=== PATIENT | female | born 2000 | race Caucasian/White ===

== ENCOUNTER 2021-12-07 08:16 | Outpatient (CLI) | payer OTHER, SELFPAY ==
[2021-12-07 08:53] LABS: Basophils Percent Auto 0.3 % (0.2-1.2); Eosinophils Absolute Auto 0.1 K/mm3 (0-0.3); Eosinophils Percent Auto 1.8 % (0-4.4); Hematocrit 41.9 % (37.0-47.0); Hemoglobin 13.5 g/dL (12.0-15.0); Immature Granulocyte Absolute 0.01 K/mm3 (0.00-0.031); Immature Granulocyte Percent A 0.1 % (0-0.5); Lymphocytes Absolute Auto 2.93 K/mm3 (0.9-3.2); Lymphocytes Percent Auto 43.1 % (18.3-44.2); Mean Corpuscular HGB Conc 32.2 g/dl (32-36); Mean Corpuscular Hemoglobin 29.5 pg (26-34); Mean Corpuscular Volume 91.7 fl (80-100); Mean Platelet Volume 9.8 fl (7.4-10.4); Monocytes Absolute Auto 0.5 K/mm3 (0.1-0.6); Monocytes Percent Auto 7.6 % (2.6-8.5); Neutrophils Absolute Auto 3.2 K/mm3 (1.3-6.7); Neutrophils Percent Auto 47.1 % (45.5-73.1); Platelet Count Result 255 k/mm3 (150-375); Red Blood Count 4.57 M/mm3 (4.2-5.4); Red Cell Distribution Width 12.8 % (11.5-14.5); White Blood Count 6.8 K/mm3 (4.5-10.0)
[2021-12-07 08:54] LABS: Cholesterol 212 mg/dL (0-200); HDL Direct 39 mg/dL; Triglycerides 111 mg/dL (<150)
[2021-12-07 09:04] LABS: LDL Cholesterol Direct 122 mg/dL
[2021-12-07 09:12] LABS: Hemoglobin A1C 5.1 % (<5.7)
[2021-12-10 11:06] LABS: DHEA-Sulfate 233 mcg/dL (18-391)
[2021-12-10 18:22] LABS: Testosterone Free 2.3 pg/mL (0.1-6.4); Testosterone Total 23 ng/dL (2-45)
[2021-12-12 00:26] LABS: Estradiol, Ultrasensitive 81 pg/mL
[2021-12-12 04:43] LABS: FSH 3.5 mIU/mL (***); Prolactin 34.1 ng/mL (***)
== END 2021-12-07 08:17 | disposition home or self-care (01) ==
PROVIDERS: Visit Provider Obstetrics & Gynecology
DX: Z87.42 Personal history of other diseases of the female genital tract (principal)
CPT/HCPCS: 36415; 80061; 82627; 82670; 83001; 83036; 83498; 84144; 84146; 84402; 84403; 85025

== ENCOUNTER 2023-01-02 10:39 | Emergency (ER) | payer OTHER, SELFPAY ==
[2023-01-02 10:48] VITALS: BP 122/74; PULSE 90; RESP 16; TEMP 36.3; O2SAT 100
--- NOTE | 2023-01-02 11:04 | ED.FEMALEGU ---
HPI - Female Genitourinary General Chief complaint: SPECIAL EDUCATION PARAEDUCATOR Stated complaint: Vaginal bleeding Time Seen by Provider: 01/02/23 10:45 Source: patient Mode of arrival: ambulatory Limitations: no limitations History of Present Illness HPI Narrative: This is a 22-year-old female that presents to the emergency department for vaginal bleeding. Reports she has had pelvic cramping over the last couple of days. Reports she has also had heavy vaginal bleeding. She recently had a cycle couple of weeks ago. Sometimes her cycles are abnormal. This 1 was heavier than usual though. She has had some lightheadedness. Reports an episode of vomiting. Denies fevers, dysuria, or hematuria. Related Data Home Medications Medication Instructions Recorded Confirmed No Home Medications 11/26/21 12/09/22 Allergies Allergy/AdvReac Type Severity Reaction Status Date / Time amoxicillin Allergy Severe Rash Verified 12/09/22 13:31 codeine Allergy Severe Rash Verified 12/09/22 13:31 Review of Systems Review of Systems: CONSTITUTIONAL: Denies fever GASTROINTESTINAL: Reports pelvic pain, nausea, vomiting GENITOURINARY: Denies dysuria or hematuria. All systems reviewed & are unremarkable except as noted in HPI and below PMFSH Past Medical History Medical History (Updated 01/02/23 @ 12:28 by Geraldine Howard PA-C) History of PCOS Surgical History Surgical History H/O hernia repair H/O removal of cyst Social History Social History (Updated 01/02/23 @ 11:06 by Geraldine Howard PA-C) Smoking status: Current every day smoker Tobacco type: e-cigarettes/vaping Alcohol intake: current Alcohol use details: socially Substance use: current Substance use type: marijuana Lack of Transportation: No Lack of Food: Never True Current Housing: I Have Housing Concerned About Future Housing: Decline to Answer Difficulty Paying Gas/Electric Bills: Decline to Answer Difficulty Paying for Meds: Decline to Answer Currently Unemployed: Decline to Answer Education: Associate Degree Living arrangements: with family Occupation/Education: occupation 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 HEAD: Normocephalic, atraumatic. EYES: EOMI. CHEST: Clear to auscultation. No respiratory distress. No wheezes rales or rhonchi HEART: Regular rate and rhythm. No murmur heard. Normal peripheral pulses. ABDOMEN: Soft, nontender, nondistended, normal active bowel sounds. EXTREMITIES: Normal range of motion. No edema. SKIN: Warm, dry, no rash. NEURO: No focal deficits. Alert and oriented x3. PSYCH: Normal mood and affect PELVIC: Normal appearing cervix. Small amount of dark red blood in the vaginal vault Course Course Emergency Course: Patient and family were updated on work-up and agree with plan of care Vital Signs Vital signs: Vital Signs Temperature 97.3 F L 01/02/23 10:48 Pulse Rate 90 01/02/23 10:48 Respiratory Rate 16 01/02/23 10:48 Blood Pressure 122/74 01/02/23 10:48 Pulse Oximetry 100 01/02/23 10:48 Oxygen Delivery Room Air 01/02/23 10:48 Temperature 97.3 F L 01/02/23 10:48 Pulse Rate 90 01/02/23 10:48 Respiratory Rate 16 01/02/23 10:48 Blood Pressure 122/74 01/02/23 10:48 Pulse Oximetry 100 01/02/23 10:48 Oxygen Delivery Room Air 01/02/23 10:48 MDM - Female Genitourinary MDM Narrative Medical decision making narrative: Patient presents to the emergency department for pelvic cramping and vaginal bleeding. Does report history of PCOS and abnormal. periods. She is not on any control. Her vitals are stable. Hemoglobin is normal. No concerning amount of bleeding noted on e
[2023-01-02 11:09] LABS: Basophils Percent Auto 0.3 % (0.2-1.2); Eosinophils Absolute Auto 0.1 K/mm3 (0-0.3); Eosinophils Percent Auto 1.2 % (0-4.4); Hematocrit 42.4 % (37.0-47.0); Hemoglobin 13.9 g/dL (12.0-15.0); Immature Granulocyte Absolute 0.02 K/mm3 (0.00-0.031); Immature Granulocyte Percent A 0.3 % (0-0.5); Lymphocytes Absolute Auto 2.46 K/mm3 (0.9-3.2); Lymphocytes Percent Auto 32.7 % (18.3-44.2); Mean Corpuscular HGB Conc 32.8 g/dl (32-36); Mean Corpuscular Hemoglobin 30.3 pg (26-34); Mean Corpuscular Volume 92.6 fl (80-100); Mean Platelet Volume 10.2 fl (7.4-10.4); Monocytes Absolute Auto 0.4 K/mm3 (0.1-0.6); Monocytes Percent Auto 5.2 % (2.6-8.5); Neutrophils Absolute Auto 4.5 K/mm3 (1.3-6.7); Neutrophils Percent Auto 60.3 % (45.5-73.1); Platelet Count Result 271 k/mm3 (150-375); Red Blood Count 4.58 M/mm3 (4.2-5.4); Red Cell Distribution Width 12.4 % (11.5-14.5); White Blood Count 7.5 K/mm3 (4.5-10.0)
[2023-01-02 11:13] LABS: Appearance Urine Clear (Clear); Bacteria Urine None Seen /hpf; Bilirubin Urine Negative (Negative); Blood Urine 3+ (Negative); Color Urine Yellow (Yellow); Glucose Urine UA Negative (Negative); Ketones Urine Negative (Negative); Leukocyte Esterase Ur Negative LEU/UL (Negative); Nitrate Urine Negative (Negative); Non Pathogenic Casts 0-2; Protein Urine Negative (Negative); Specific Grav Ur 1.003 (1.001-1.035); Squamous Epithelial Cell Urine None seen /hpf (Few); Urobilinogen Urine 0.2 mg/dL (<2.0); WBC Urine 0-5 /hpf; pH Urine 5.5 (5.0-9.0)
[2023-01-02 11:15] LABS: Add Urine Microscopic? YES
[2023-01-02 11:22] LABS: Anion Gap 4 mmol/L (8-16); Blood Urea Nitrogen 10 mg/dL (7-17); Calcium 9.2 mg/dL (8.4-10.2); Carbon Dioxide 27 mmol/L (22-30); Chloride 104 mmol/L (98-107); Estimated CRCL calculation 117 ml/min; Estimated Glomerular Filt Rate > 60; Glucose 104 mg/dL (65-110); Potassium 4.1 mmol/L (3.4-5.0); Sodium 135 mmol/L (137-145)
[2023-01-02 12:55] VITALS: BP 139/94; PULSE 72; RESP 18; O2SAT 100
== END 2023-01-02 13:00 | disposition home or self-care (01) ==
PROVIDERS: Emergency Provider Physician Assistant
DX: N93.9 Abnormal uterine and vaginal bleeding, unspecified (principal); E28.2 Polycystic ovarian syndrome; F17.290 Nicotine dependence, other tobacco product, uncomplicated
CPT/HCPCS: 36415; 80048; 81001; 81025; 85025; 99283